=== PATIENT | male | born 2000 | race Caucasian/White ===

== ENCOUNTER 2024-06-25 17:48 | Emergency (ER) | payer OTHER ==
[~2024-06-25] VITALS: Ht 177.8 cm; Wt 86.2 kg
[2024-06-25 18:03] VITALS: BP 121/69; TEMP 98.2; O2SAT 100
[2024-06-25] MEDS ORDERED: RABIES VACCINE (PCEC)/PF 1 EA KIT IM ONE (18:51)
[2024-06-25] MEDS: RABIES VACCINE (PCEC)/PF 1 EA KIT IM ONE (19:05)
== END 2024-06-25 19:22 | disposition home or self-care (01) ==
LOC: ER 17:50
DX: Z20.3 Contact with and (suspected) exposure to rabies (principal); Z23 Encounter for immunization